=== PATIENT | male | born 1985 | race Hispanic/Latino ===

== ENCOUNTER 2018-02-07 12:39 | Emergency (ER) | payer SELFPAY ==
[2018-02-07 13:12] VITALS: BMI 28.7
[2018-02-07 13:17] VITALS: RESP 18
--- NOTE | 2018-02-07 13:59 | C.PDOC ---
History Of Present Illness 33 year old male presents to the ED for evaluation of new onset left-sided chest pain which began at 1100 today. Patient states he was waking down the stairs when he felt sudden onset of left-sided chest pain associated with sharp radiation to the side of his left arm and down to his left 4th and 5th fingers. He describes pain as constant and denies association with movement. Patient denies fever, chills, shortness of breath, neck pain, extremity numbness/ weakness. Time Seen by Provider: 02/07/18 13:21 Chief Complaint (Nursing): Chest Pain History Per: Patient History/Exam Limitations: no limitations Onset/Duration Of Symptoms: Sudden Onset Current Symptoms Are (Timing): Still Present Quality: "Pain" Additional History Per: Patient Past Medical History Reviewed: Historical Data, Nursing Documentation, Vital Signs Vital Signs: Last Vital Signs Temp 99.2 F 02/07/18 15:42 Pulse 82 02/07/18 15:42 Resp 18 02/07/18 15:42 BP 150/84 02/07/18 15:42 Pulse Ox 98 02/07/18 15:58 - Medical History PMH: No Chronic Diseases Surgical History: No Surg Hx Family History: States: No Known Family Hx - Social History Hx Alcohol Use: Yes Hx Substance Use: Yes - Immunization History Hx Tetanus Toxoid Vaccination: No Review Of Systems Constitutional: Negative for: Fever, Chills Cardiovascular: Positive for: Chest Pain (left-sided ) Respiratory: Negative for: Shortness of Breath Neurological: Negative for: Weakness, Numbness Physical Exam - Physical Exam Appears: Non-toxic, No Acute Distress Skin: Normal Color, Warm, Dry Head: Atraumatic, Normacephalic Eye(s): bilateral: Normal Inspection Oral Mucosa: Moist Neck: Supple Chest: Symmetrical, No Deformity, No Tenderness Cardiovascular: Rhythm Regular, No Murmur Respiratory: Normal Breath Sounds, No Rales, No Rhonchi, No Wheezing Extremity: Normal ROM, Capillary Refill (less than 2 seconds ) Neurological/Psych: Oriented x3, Normal Speech, Normal Cognition ED Course And Treatment - Laboratory Results Result Diagrams: 02/07/18 14:18 02/07/18 14:18 ECG: Interpreted By Me, Viewed By Me ECG Rhythm: Sinus Rhythm Rate From EC O2 Sat by Pulse Oximetry: 98 (on RA) Pulse Ox Interpretation: Normal Progress Note: Bloodwork, CXR, EKG, Abdomen Flat Plate ordered and reviewed. Aspirin PO, Decadron IVP, Flexeril PO, Nitroglycerin TOP, and Toradol IVP administered. Reevaluation Time: 15:58 Reassessment Condition: Unchanged (PERSIST CP. NAD NONTOXIC.) - Physician Consult Information Time Consulting Physician Contacted: 15:57 Physician Contacted: Connor Nova Outcome Of Conversation: AWARE OF ER FINDINGS WILL ADMIT. REQUESTS UDS Disposition Doctor Will See Patient In The: Hospital Counseled Patient/Family Regarding: Diagnosis - Disposition Disposition: HOSPITALIZED Disposition Time: 15:58 Condition: STABLE Forms: [employer] (Polish) - POA Present On Arrival: None - Clinical Impression Clinical Impression: Chest pain - Scribe Statement The provider has reviewed the documentation as recorded by the Scribe (Sofi Nova) Provider Attestation: All medical record entries made by the Scribe were at my direction and personally dictated by me. I have reviewed the chart and agree that the record accurately reflects my personal performance of the history, physical exam, medical decision making, and the department course for this patient. I have also personally directed, reviewed, and agree with the discharge instructions and disposition. Decision To Admit - Pt Status Changed To: Hospital Disposition Of: Observation - . Bed Request Type: Telemetry Admitting Physician: Connor Nova Patient Diagnosis: Chest pain
[2018-02-07 14:24] LABS: BASO % 0.3 % (0.0-2.0); EOS % 0.5 % (0.0-4.0); HEMOGLOBIN 15.8 g/dL (12.0-18.0); MEAN CELL VOLUME 91.3 fL (80.0-94.0); MEAN CORPUSCULAR HEMOGLOBIN 32.3 pg (27.0-31.0); MEAN CORPUSCULAR HGB CONC 35.3 g/dL (33.0-37.0); MEAN PLATELET VOLUME 8.1 fL (7.2-11.7); MONO # 0.6 K/uL (0.0-0.8); MONO % 9.6 % (0.0-10.0); NEUT # 4.8 K/uL (1.8-7.0); NEUT % 73.6 % (50.0-75.0); NRBC % 0.1 % (0.0-2.0); RBC 4.89 Mil/uL (4.40-5.90); RED CELL DISTRIBUTION WIDTH 12.7 % (11.5-14.5); WHITE BLOOD COUNT 6.5 K/uL (4.8-10.8)
--- NOTE | 2018-02-07 14:24 | RAD ---
HISTORY: Chest pain. COMPARISON: Correlation made with concurrent radiographs of the abdomen. TECHNIQUE: Chest PA and lateral FINDINGS: LUNGS: No active pulmonary disease. PLEURA: No significant pleural effusion identified. No pneumothorax apparent. CARDIOVASCULAR: Normal. OSSEOUS STRUCTURES: No significant abnormalities. VISUALIZED UPPER ABDOMEN: Normal. OTHER FINDINGS: None. IMPRESSION: No active disease.
[2018-02-07 14:42] LABS: BLOOD UREA NITROGEN 13 mg/dL (9-20); CALCIUM 9.6 mg/dl (8.6-10.4); GFR AFRICAN-AMERICAN > 60; GFR NON-AFRICAN AMERICAN > 60
[2018-02-07 15:44] VITALS: BP 150/84; PULSE 82; TEMP 99.2
[2018-02-07] MEDS ORDERED: Nitroglycerin 2% Ointment Foilpak UD TOP STA (15:44)
[2018-02-07 15:50] VITALS: O2SAT 98
--- NOTE | 2018-02-07 16:21 | CP.PCM.HP ---
<Urmila Brenner - Last Filed: 02/07/18 17:09> History of Present Illness - History of Present Illness History of Present Illness: 33 year old male presented to the ER for chest pain which began at 11am this morning and radiated to his left arm with numbness and tingling. Patient's troponin was negative, chest xray was negative and EKG NSR. Upon arriving to the ER to have a full history, review of systems and physical patient stated he would like to leave the hospital. Patient was told the risks such as cardiac arrest and of leaving against medical advice. Patient understood those risks and wanted to leave. Discussed with attending Dr. Connor Brenner PGY-1 Present on Admission - Present on Admission Any Indicators Present on Admission: No Past Patient History - Past Social History Smoking Status: Light Smoker < 10 Cigarettes Daily - CARDIAC Hx Cardiac Disorders: Yes (SEE COMMENT) Other/Comment: Murmur as child - MUSCULOSKELETAL/RHEUMATOLOGICAL Hx Musculoskeletal Disorders: Yes Other/Comment: Right knee meniscus sx - PSYCHIATRIC Hx Substance Use: Yes Meds Allergies/Adverse Reactions: Allergies Allergy/AdvReac Type Severity Reaction Status Date / Time seasonal Allergy Uncoded 02/07/18 13:06 Results - Vital Signs Recent Vital Signs: Last Vital Signs Temp 99.2 F 02/07/18 15:42 Pulse 82 02/07/18 15:42 Resp 18 02/07/18 15:42 BP 150/84 02/07/18 15:42 Pulse Ox 98 02/07/18 15:59 - Labs Result Diagrams: 02/07/18 14:18 02/07/18 14:18 Labs: Laboratory Results - last 24 hr 02/07/18 02/07/18 14:18 14:18 WBC 6.5 RBC 4.89 Hgb 15.8 Hct 44.7 MCV 91.3 MCH 32.3 H MCHC 35.3 RDW 12.7 Plt Count 275 MPV 8.1 Neut % (Auto) 73.6 Lymph % (Auto) 16.0 L [place] % (Auto) 9.6 Eos % (Auto) 0.5 Baso % (Auto) 0.3 Neut # (Auto) 4.8 Lymph # (Auto) 1.0 [place] # (Auto) 0.6 Eos # (Auto) 0.0 Baso # (Auto) 0.0 Sodium 144 Potassium 4.3 Chloride 101 Carbon Dioxide 29 Anion Gap 18 BUN 13 Creatinine 1.0 Est GFR ( Amer) > 60 Est GFR (Non-Af Amer) > 60 Random Glucose 88 Calcium 9.6 Troponin I < 0.0120 <Connor Nova - Last Filed: 02/07/18 20:33> Results - Vital Signs Recent Vital Signs: Last Vital Signs Temp 99.2 F 02/07/18 15:42 Pulse 82 02/07/18 15:42 Resp 18 02/07/18 15:42 BP 150/84 02/07/18 15:42 Pulse Ox 98 02/07/18 15:59 - Labs Result Diagrams: 02/07/18 14:18 02/07/18 14:18 Labs: Laboratory Results - last 24 hr 02/07/18 02/07/18 14:18 14:18 WBC 6.5 RBC 4.89 Hgb 15.8 Hct 44.7 MCV 91.3 MCH 32.3 H MCHC 35.3 RDW 12.7 Plt Count 275 MPV 8.1 Neut % (Auto) 73.6 Lymph % (Auto) 16.0 L [place] % (Auto) 9.6 Eos % (Auto) 0.5 Baso % (Auto) 0.3 Neut # (Auto) 4.8 Lymph # (Auto) 1.0 [place] # (Auto) 0.6 Eos # (Auto) 0.0 Baso # (Auto) 0.0 Sodium 144 Potassium 4.3 Chloride 101 Carbon Dioxide 29 Anion Gap 18 BUN 13 Creatinine 1.0 Est GFR ( Amer) > 60 Est GFR (Non-Af Amer) > 60 Random Glucose 88 Calcium 9.6 Troponin I < 0.0120 Attending/Attestation - Attestation I have personally seen and examined this patient.: No I have fully participated in the care of the patient.: Yes I have reviewed all pertinent clinical information: Yes Notes (Text): 02/07/18 20:32 Patient signed out AMA before he could be seen by me. Spoke with Dr. Reagan Brenner prior to patient being signed out AMA and he was made aware of the risks of leaving AMA. Connor Nova D.O.
--- NOTE | 2018-02-07 20:37 | CP.PCM.DIS ---
Provider - Provider Date of Admission: Patient was NOT admitted as he signed AMA from ER Attending physician: There was NO attending physician as he signed AMA from ER Consults: NONE Time Spent in preparation of Discharge (in minutes): 10 Hospital Course - Lab Results Lab Results: Most Recent Lab Values WBC 6.5 K/uL (4.8-10.8) 02/07/18 14:18 RBC 4.89 Mil/uL (4.40-5.90) 02/07/18 14:18 Hgb 15.8 g/dL (12.0-18.0) 02/07/18 14:18 Hct 44.7 % (35.0-51.0) 02/07/18 14:18 MCV 91.3 fL (80.0-94.0) 02/07/18 14:18 MCH 32.3 pg (27.0-31.0) H 02/07/18 14:18 MCHC 35.3 g/dL (33.0-37.0) 02/07/18 14:18 RDW 12.7 % (11.5-14.5) 02/07/18 14:18 Plt Count 275 K/uL (130-400) 02/07/18 14:18 MPV 8.1 fL (7.2-11.7) 02/07/18 14:18 Neut % (Auto) 73.6 % (50.0-75.0) 02/07/18 14:18 Lymph % (Auto) 16.0 % (20.0-40.0) L 02/07/18:18 [place] % (Auto) 9.6 % (0.0-10.0) 02/07/18 14:18 Eos % (Auto) 0.5 % (0.0-4.0) 02/07/18:18 Baso % (Auto) 0.3 % (0.0-2.0) 02/07/18:18 Neut # (Auto) 4.8 K/uL (1.8-7.0) 02/07/18 14:18 Lymph # (Auto) 1.0 K/uL (1.0-4.3) 02/07/18 14:18 [place] # (Auto) 0.6 K/uL (0.0-0.8) 02/07/18 14:18 Eos # (Auto) 0.0 K/uL (0.0-0.7) 02/07/18 14:18 Baso # (Auto) 0.0 K/uL (0.0-0.2) 02/07/18 14:18 Sodium 144 mmol/L (132-148) 02/07/18 14:18 Potassium 4.3 mmol/L (3.6-5.2) 02/07/18 14:18 Chloride 101 mmol/L (98-107) 02/07/18 14:18 Carbon Dioxide 29 mmol/L (22-30) 02/07/18 14:18 Anion Gap 18 (10-20) 02/07/18 14:18 BUN 13 mg/dL (9-20) 02/07/18 14:18 Creatinine 1.0 mg/dL (0.8-1.5) 02/07/18 14:18 Est GFR ( Amer) > 60 02/07/18 14:18 Est GFR (Non-Af Amer) > 60 02/07/18 14:18 Random Glucose 88 mg/dL (75-110) 02/07/18 14:18 Calcium 9.6 mg/dl (8.6-10.4) 02/07/18 14:18 Troponin I < 0.0120 ng/mL (0.00-0.120) 02/07/18 14:18 - Hospital Course Hospital Course: 33 year old male presented to the ER for chest pain which began at 11am this morning and radiated to his left arm with numbness and tingling. Patient's troponin was negative, chest xray was negative and EKG NSR. Upon arriving to the ER to have a full history, review of systems and physical patient stated he would like to leave the hospital. Patient was told the risks such as cardiac arrest and of leaving against medical advice. Patient understood those risks and wanted to leave. Prior to resident Dr. Yenifer Brenner seeing patient I had accepted care of patient for Observation for Chest Pain. I was notified by resident Dr. Yenifer Brenner of the above via phone. Patient signed AMA before I could see him. Connor Nova D.O. Discharge Plan - Follow Up Plan Condition: STABLE Disposition: HOSPITALIZED Instructions: Chest Pain, Leaving Against Medical Advice
--- NOTE | 2018-02-10 16:43 | CARD ---
APPROVED REPORT EKG Measurement Heart [id number] <Conclusion> Normal sinus rhythm Possible Left atrial enlargement Borderline ECG
== END 2018-02-07 17:30 | disposition left against medical advice (07) ==
LOC: C.ER 12:39 → UNDOADMOB 15:59 → C.9E 15:59 → C.ER 17:30
DX: R07.9 Chest pain, unspecified (principal); F17.210 Nicotine dependence, cigarettes, uncomplicated
CPT/HCPCS: 71046; 80048; 84484; 85025; 96374; 96375; 99284; J1100; J1885